=== PATIENT | male | born 1995 | race Caucasian/White ===

== ENCOUNTER 2017-06-11 16:45 | Emergency (ER) | payer BC ==
[~2017-06-11] VITALS: Ht 180.3 cm; Wt 95.3 kg
[2017-06-11] MEDS ORDERED: VANCOMYCIN IV 1,000 MG in IV DEXTROSE 5% 250 ML IV ONE (17:15)
[2017-06-11] MEDS ORDERED: VANCOMYCIN IV 200 ML ONE (17:47)
[2017-06-11 17:55] LABS: BASOPHILS # (AUTO) 0.2 K/uL (0.0-8.0); EOSINOPHILS # (AUTO) 0.1 K/uL (0.0-0.7); EOSINOPHILS % (AUTO) 0.8 % (0.0-7.0); HEMATOCRIT 44.3 % (40-50); HEMOGLOBIN 14.4 G/DL (14.0-18.0); LYMPHOCYTES # (AUTO) 2.2 K/UL (0.8-4.8); LYMPHOCYTES % (AUTO) 12.4 % (20.5-51.5); MEAN CORPUSCULAR HGB CONC 32 g/dL (32.0-37.0); MEAN CORPUSCULAR VOLUME 89.5 FL (82.0-92.0); MONOCYTES # (AUTO) 0.8 K/UL (0.1-1.30); MONOCYTES % (AUTO) 4.5 % (0.0-11.0); NEUTROPHILS # (AUTO) 14.8 K/UL (1.8-8.9); NEUTROPHILS % (AUTO) 81.3 % (38.5-71.5); PLATELET COUNT (AUTO) 292 K/UL (150-450); RED BLOOD CELL COUNT(AUTO) 4.95 MIL/UL (4.7-6.1); WHITE BLOOD COUNT (AUTO) 18.1 K/UL (4.0-11.2)
[2017-06-11 18:03] LABS: BILIRUBIN,TOTAL 0.2 mg/dL (0.2-1.0); CREATININE 0.9 mg/dL (0.6-1.3); POTASSIUM 4.3 mmol/L (3.5-5.1); TOTAL PROTEIN, SERUM 7.3 g/dL (6.4-8.2)
[2017-06-11] MEDS ORDERED: IOHEXOL 300MG/ML 100 ML INFUS..BTL ONE (19:05)
[2017-06-11] MEDS ORDERED: NORMAL SALINE FLUSH 10 ML DISP.SYRIN ONE (19:05)
[2017-06-11] MEDS ORDERED: IV NORMAL SALINE 250 ML IV ONE (19:05)
--- NOTE | 2017-06-11 19:07 | NUR ---
pt back from ct scan. vanco was stopped at the time of ct scan, started the vanco again
--- NOTE | 2017-06-11 19:20 | NUR ---
Received report, assumed care of pt at this time. Pt resting in position of comfort for self. ABT still infusing, no adverse reactions noted. Awaiting CT results
--- NOTE | 2017-06-11 20:28 | NUR ---
Pt stable for discharge per Dr. Frank. IV dc'd, catheter intact, drsg applied. No problems noted to site. [facility] called to pick up attendant pt.
--- NOTE | 2017-06-11 20:40 | NUR ---
Pt given ACI. Pt verbalized understanding of dc instructions. Pt ambulated out of ER with steady gait to wait in the wr for ride.
[2017-06-11 20:56] VITALS: BP 165/87
== END 2017-06-11 20:40 | disposition home or self-care (01) ==
LOC: ER 16:59 → EDBD 16:59 → ER 20:40
DX: L03.221 Cellulitis of neck (principal)
CPT/HCPCS: 36415; 70491; 85025; A4663; J3370; J3490; J7050; Q9967